=== PATIENT | male | born 1960 | race Caucasian/White ===

== ENCOUNTER 2017-03-04 09:42 | Inpatient (IN) | payer OTHER ==
[2017-03-04 12:24] VITALS: BMI 33.5
--- NOTE | 2017-03-04 15:44 | HP ---
CIWA Score - CIWA Score Nausea/Vomitin Muscle Tremors: 3 Anxiety: 3 Agitation: 3 Paroxysmal Sweats: 1-Minimal Palms Moist Orientation: 0-Oriented Tacttile Disturbances: 2-Mild Itch/Numbness/Burn Auditory Disturbances: 2-Mild Harshness/Frighten Visual Disturbances: 2-Mild Sensitivity Headache: 2-Mild CIWA-Ar Total Score: 21 Admission ROS BHS - HPI Chief Complaint: i need help to stop drinking alcohol and cocaine, Allergies/Adverse Reactions: Allergies Allergy/AdvReac Type Severity Reaction Status Date / Time No Known Allergies Allergy Verified 03/04/17 14:14 History of Present Illness: this 56 years old male with alcohol and cocaine dependence,seeking help for detox,last treatment [facility] 04/30/15 to 05/04/15 nicotine dependence multiple admissions in detox but relapse longest period of sobriety 5 years insomnia - Ebola screening Have you traveled outside of the country in the last 21 days: No Have you had contact with anyone from an Ebola affected area: No Have you been sick,other than usual withdrawal symptoms: No Do you have a fever: No - Review of Systems Constitutional: Loss of Appetite, Night Sweats, Changes in sleep, Weakness EENT: reports: Tearing, Nose Congestion Respiratory: reports: No Symptoms reported Cardiac: reports: No Symptoms Reported GI: reports: Diarrhea, Nausea, Vomiting, Abdominal cramping : reports: No Symptoms Reported Musculoskeletal: reports: Back Pain, Muscle Pain Integumentary: reports: Dryness Neuro: reports: Headache, Tremors Endocrine: reports: No Symptoms Reported Hematology: reports: No Symptoms Reported Psychiatric: reports: No Sypmtoms Reported (insomnia), Judgement Intact, Mood/ Affect Appropiate Patient History - Patient Medical History Hx Anemia: No Hx Asthma: No Hx Chronic Obstructive Pulmonary Disease (COPD): No Hx Cancer: No Hx Cardiac Disorders: No Hx Hypertension: No Hx Hypercholesterolemia: Yes (NO MED) Hx Pacemaker: No HX Cerebrovascular Accident: No Hx Seizures: No Hx Diabetes: No Hx Gastrointestinal Disorders: No Hx Liver Disease: No Hx Genitourinary Disorders: No Hx Sexually Transmitted Disorders: No Hx Renal Disease (ESRD): No Hx Thyroid Disease: No Hx Human Immunodeficiency Virus (HIV): No (NEGATIVE HX last 2015 negative) Hx Hepatitis C: No Hx Depression: No Hx Suicide Attempt: No Hx Bipolar Disorder: No Hx Schizophrenia: No Other Medical History: no suicidal,no homicidal,insomnia - Patient Surgical History Past Surgical History: No Hx Neurologic Surgery: No Hx Cataract Extraction: No Hx Cardiac Surgery: No Hx Lung Surgery: No Hx Breast Surgery: No Hx Breast Biopsy: No Hx Abdominal Surgery: No Hx Appendectomy: No Hx Cholecystectomy: No Hx Genitourinary Surgery: No Hx Section: No Hx Orthopedic Surgery: No Anesthesia Reaction: No - PPD History Previous Implant?: Yes Documented Results: Positive w/o proof Implanted On Prior [facility] Admission?: No PPD to be Administered?: No - Smoking Cessation Smoking history: Current every day smoker Have you smoked in the past 12 months: Yes Aproximately how many cigarettes per day: 20 Hx Chewing Tobacco Use: No Initiated information on smoking cessation: Yes 'Breaking Loose' booklet given: 03/04/17 - Substance & Tx. History Hx Alcohol Use: Yes Hx Substance Use: Yes Substance Use Type: Alcohol, Cocaine Hx Substance Use Treatment: Yes ([facility] 04/30/15 to 05/04/15) - Substances Abused Alcohol Route: Oral Frequency: Daily Amount used: 2 12PKS BEER/ 1 PINT VODKA Age of first use: 16 Date of Last Use: 03/03/17 Cocaine Route: Smoking Frequency: Daily Amount used: $100 AND UP Age of first use: 22 Date of Last Use: 03/03/17 Family Disease History - Family Disease History Family History: Denies Family Disease History: Other: Mother (HTN), Sister (HTN) Admission Physical Exam S - Vital Signs Vital Signs: Vital Signs - 24 hr 03/04/17 12:22 Temperature 96.6 F L Pulse Rate 72 Respiratory 20 Rate Blood Pressure 133/69 - Physical General Appearance: Yes: Moderate Distress, Tremorous, Irritable, Sweating, Anxious HEENTM: Yes: Hearing grossly Normal, Normal ENT Inspection, SURINDER, Pharynx Normal Respiratory: Yes: Lungs Clear, Normal Breath Sounds, No Respiratory Distress Neck: Yes: Within Normal Limits, Supple, Trachea in good position Breast: Yes: Within Normal Limits Cardiology: Yes: Within Normal Limits, Regular Rhythm, Regular Rate, S1, S2 Abdominal: Yes: Within Normal Limits, Normal Bowel Sounds, Non Tender, Soft Genitourinary: Yes: Within Normal Limits Back: Yes: Within Normal Limits Musculoskeletal: Yes: full range of Motion, Back pain, Muscle Pain Extremities: Yes: Normal Range of Motion, Tremors Neurological: Yes: athletic coach II-XII NML intact, Fully Oriented, Alert, Motor Strength 5/5 Integumentary: Yes: Dry Lymphatic: Yes: Within Normal Limits - Diagnostic (1) Nicotine dependence Current Visit: No Status: Acute (2) Alcohol dependence with uncomplicated withdrawal Current Visit: Yes Status: Acute (3) Cocaine dependence Current Visit: Yes Status: Acute (4) Hyperlipidemia Current Visit: No Status: Acute (5) Insomnia Current Visit: Yes Status: Acute Cleared for Admission [facility] - Detox or Rehab [facility] Level of Care: Medically Managed Detox Regimen/Protocol: Librium [facility] Breath Alcohol Content Breath Alcohol Content: 0 Urine Drug Screen - Results Drug Screen Negative: No Urine Drug Screen Results: CHRISTINA-Cocaine
[2017-03-04] MEDS ORDERED: P-EPHED 60MG/TRIPROLIDI 2.5MG TABLET PO PRN (16:04)
[2017-03-04] MEDS ORDERED: MAGNESIUM HYDROX 2400MG/30ML ORAL SUSPENSION 30 ML CUP PO PRN (16:04)
[2017-03-04] MEDS ORDERED: LOPERAMIDE HCL 2 MG CAPSULE PO PRN (16:04)
[2017-03-04] MEDS ORDERED: chlordiazePOXIDE HCL 25 MG CAPSULE PO ONE (16:04)
[2017-03-04] MEDS ORDERED: MAGNESIUM CITRATE 300 ML BOTTLE PO PRN (16:04)
[2017-03-04] MEDS ORDERED: MENTHOL/PHENOL 1 EACH UD MM PRN (16:04)
[2017-03-04] MEDS ORDERED: MAG HYDROX/AL HYDROX/SIMETH 30 ML UNIT-DOSE CUP PO PRN (16:04)
[2017-03-04] MEDS ORDERED: ACETAMINOPHEN 325 MG TABLET (FP) PO PRN (16:04)
[2017-03-04] MEDS ORDERED: chlordiazePOXIDE HCL 25 MG CAPSULE PO PRN (16:04)
[2017-03-04] MEDS ORDERED: diphenhydrAMINE HCL 50 MG CAPSULE PO PRN (16:04)
[2017-03-04] MEDS ORDERED: guaiFENesin/D-METHORPHAN HB 10 ML UNIT-DOSE CUPS PO PRN (16:04)
[2017-03-04] MEDS: chlordiazePOXIDE HCL 25 MG CAPSULE PO SCH ×2 (17:54→22:39)
[2017-03-04] MEDS: NICOTINE 21 MG/24 HOURS TOPICAL PATCH TD SCH (17:55)
[2017-03-04] MEDS: THIAMINE HCL 100 MG TABLET (FP) PO SCH (22:39)
[2017-03-04 23:17] LABS: URINE APPEARANCE CLEAR; URINE BILIRUBIN NEGATIVE (NEGATIVE); URINE BLOOD NEGATIVE (NEGATIVE); URINE COLOR YELLOW; URINE GLUCOSE (UA) NEGATIVE (NEGATIVE); URINE KETONE NEGATIVE (NEGATIVE); URINE LEUK ESTERASE NEGATIVE (NEGATIVE); URINE NITRITE NEGATIVE (NEGATIVE); URINE PROTEIN NEGATIVE (NEGATIVE); URINE UROBILINOGEN NEGATIVE mg/dL (0.2-1.0)
[2017-03-05] MEDS: chlordiazePOXIDE HCL 25 MG CAPSULE PO SCH ×4 (06:11→22:31)
--- NOTE | 2017-03-05 08:23 | CONSULT ---
[facility] Psychiatric Consult - Data Date of interview: 03/05/17 Admission source: [facility] Identifying data: This is 56 years old male with unclear past psychiatric history, intoxicated with: Heroin, Cocaine, Alcohol, Nicotine Substance Abuse History: - Smoking Cessation. Smoking history: Current every day smoker. Have you smoked in the past 12 months: Yes. Aproximately how many cigarettes per day: 20. Hx Chewing Tobacco Use: No. Initiated information on smoking cessation: Yes. 'Breaking Loose' booklet given: 03/04/17. - Substance & Tx. History. Hx Alcohol Use: Yes. Hx Substance Use: Yes. Substance Use Type : Alcohol, Cocaine. Hx Substance Use Treatment: Yes ([facility] 04/30/15 to 05/04/15) . - Substances Abused. Alcohol. Route: Oral. Frequency: Daily. Amount used: 2 12PKS BEER/ 1 PINT VODKA. Age of first use: 16. Date of Last Use: . Cocaine. Route: Smoking. Frequency: Daily. Amount used: $100 AND UP. Age of first use: 22. Date of Last Use: 03/03/17 Medical History: History of Cellulitis, GERD, LBP history Psychiatric History: Unclear, denies past psychiatric hospitalization history,m qas per computer there is a history of Bipolar Disorder. Reports no medicastions taking prior to admission Physical/Sexual Abuse/Trauma History: Denies Additional Comment: Observation. Detox Unit Care Protocol Mental Status Exam - Mental Status Exam Alert and Oriented to: Person Cognitive Function: Fair Patient Appearance: Unkempt Mood: Nervous, Anxious, Irritable Affect: Labile Patient Behavior: Guarded, Impulsive Speech Pattern: Delayed Voice Loudness: Mildly Loud Thought Process: Circumstantial Thought Disorder: Present Hallucinations: Denies Suicidal Ideation: Denies Homicidal Ideation: Denies Insight/Judgement: Fair Sleep: Difficulty falling asleep Appetite: Weight gain Muscle strength/Tone: Mild Hypotonicity Gait/Station: Shuffling Additional Comments: Observation. Detox Unit Care Protocol Psychiatric Findings - Problem List ([place] 1, 2,3) (1) Alcohol dependence with uncomplicated withdrawal Current Visit: Yes Status: Acute (2) Cocaine dependence Current Visit: Yes Status: Acute (3) Alcohol dependence Current Visit: No Status: Acute (4) Bipolar disorder Current Visit: No Status: Acute (5) Opioid dependence Current Visit: No Status: Acute (6) Drug-induced mood disorder Current Visit: Yes Status: Acute - Initial Treatment Plan Initial Treatment Plan: Observation. Detox Unit Care Protocol
[2017-03-05 10:03] LABS: MCH 29.8 pg (25.7-33.7); MCHC 32.5 g/dl (32.0-35.9); MEAN CELL VOLUME 91.9 fl (80-96); MEAN PLT VOLUME 8.9 fl (7.5-11.1); PLATELET COUNT 190 K/MM3 (134-434); RDW 12.9 % (11.9-15.9); WHITE BLOOD COUNT 6.1 K/mm3 (4.0-10.0)
[2017-03-05 10:11] LABS: ALBUMIN 3.1 g/dl (3.4-5.0); ANION GAP 7 (8-16); CALCIUM 8.2 mg/dL (8.5-10.1); CO2 26 mmol/L (21-32); GLUCOSE,RANDOM 92 mg/dL (74-106)
--- NOTE | 2017-03-05 10:13 | PN ---
S CIWA - CIWA Score Nausea/Vomitin Muscle Tremors: 3 Anxiety: 3 Agitation: 3 Paroxysmal Sweats: 1-Minimal Palms Moist Orientation: 0-Oriented Tacttile Disturbances: 1-Very Mild Itch/Numbness Auditory Disturbances: 1-Very Mild Visual Disturbances: 1-Very Mild Sensitivity Headache: 2-Mild CIWA-Ar Total Score: 18 S Progress Note (SOAP) Subjective: ALERT,IRRITABLE,ANXIOUS,INTERRUPTED SLEEP,TREMOR Objective: 03/05/17 10:11 Vital Signs Temperature 96.3 F L 03/05/17 06:32 Pulse Rate 51 L 03/05/17 06:32 Respiratory Rate 16 03/05/17 06:32 Blood Pressure 142/72 03/05/17 06:32 O2 Sat by Pulse Oximetry (%) EKG SINUS BRADYCARDIA 57/MIN,INVERTED T IN 3 N CHEST PAIN,NO SOB,NO DIZZINESS Laboratory Last Values WBC 6.1 K/mm3 (4.0-10.0) 03/05/17 06:30 RBC 4.87 M/mm3 (4.00-5.60) 03/05/17 06:30 Hgb 14.5 GM/dL (11.7-16.9) 03/05/17 06:30 Hct 44.8 % (35.4-49) 03/05/17 06:30 MCV 91.9 fl (80-96) 03/05/17 06:30 MCH 29.8 pg (25.7-33.7) 03/05/17 06:30 MCHC 32.5 g/dl (32.0-35.9) 03/05/17 06:30 RDW 12.9 % (11.9-15.9) 03/05/17 06:30 Plt Count 190 K/MM3 (134-434) 03/05/17 06:30 MPV 8.9 fl (7.5-11.1) D 03/05/17 06:30 Urine Color Yellow 03/04/17 22:00 Urine Appearance Clear 03/04/17 22:00 Urine pH 5.0 (5.0-8.0) 03/04/17 22:00 Ur Specific [place] >= 1.030 (1.005-1.025) H 03/04/17 22:00 Urine Protein Negative (NEGATIVE) 03/04/17 22:00 Urine Glucose (UA) Negative (NEGATIVE) 03/04/17 22:00 Urine Ketones Negative (NEGATIVE) 03/04/17 22:00 Urine Blood Negative (NEGATIVE) 03/04/17 22:00 Urine Nitrite Negative (NEGATIVE) 03/04/17 22:00 Urine Bilirubin Negative (NEGATIVE) 03/04/17 22:00 Urine Urobilinogen Negative mg/dL (0.2-1.0) 03/04/17 22:00 Ur Leukocyte Esterase Negative (NEGATIVE) 03/04/17 22:00 LABS PENDING Assessment: 03/05/17 10:12 WITHDRAWAL SYMPTOM Plan: CONTINUE DETOX
[2017-03-05 10:16] LABS: ALK PHOS 47 U/L (45-117); BILIRUBIN,TOTAL 0.2 mg/dL (0.2-1.0); CREATININE 0.7 mg/dL (0.7-1.3); SGOT/AST 12 U/L (15-37); SGPT/ALT 22 U/L (12-78); TOT PROT 5.8 g/dl (6.4-8.2)
[2017-03-05 10:38] LABS: HIV 1 & 2 AB NEGATIVE
[2017-03-05 10:39] LABS: HIV 1 AGp24 NEGATIVE
[2017-03-05] MEDS: PRENATAL VITAMINS W/ FOLIC ACID TABLET (FP) PO SCH (10:55)
[2017-03-05] MEDS: NICOTINE 21 MG/24 HOURS TOPICAL PATCH TD SCH (11:20)
--- NOTE | 2017-03-05 16:37 | EKG ---
Test Reason : Blood Pressure : / mmHG Vent. Rate : 055 BPM Atrial Rate : 055 BPM P-R Int : 138 ms QRS Dur : 090 ms QT Int : 464 ms P-R-T Axes : 034 -22 007 degrees QTc Int : 443 ms SINUS BRADYCARDIA NONSPECIFIC T WAVE ABNORMALITY ABNORMAL ECG NO PREVIOUS ECGS AVAILABLE Confirmed by PRESTON RHOADES, HILDA ([id number]) on 03/05/2017 4:37:27 PM Referred By: Confirmed By:HILDA JOHNSTON MD
[2017-03-05] MEDS: THIAMINE HCL 100 MG TABLET (FP) PO SCH (22:31)
[2017-03-06] MEDS: chlordiazePOXIDE HCL 25 MG CAPSULE PO SCH ×2 (05:45→10:37)
[2017-03-06] MEDS: NICOTINE POLACRILEX 2 MG GUM BC PRN ×2 (05:48→22:32)
--- NOTE | 2017-03-06 10:36 | PN ---
[facility] CIWA - CIWA Score Nausea/Vomitin Muscle Tremors: 3 Anxiety: 3 Agitation: 2 Paroxysmal Sweats: 1-Minimal Palms Moist Orientation: 0-Oriented Tacttile Disturbances: 1-Very Mild Itch/Numbness Auditory Disturbances: 1-Very Mild Visual Disturbances: 1-Very Mild Sensitivity Headache: 2-Mild CIWA-Ar Total Score: 17 S Progress Note (SOAP) Subjective: ALERT,IRRITABLE,ANXIOUS,INTERRUPTED SLEEP,TREMOR Objective: 03/06/17 10:34 Vital Signs Temperature 97.9 F 03/06/17 10:00 Pulse Rate 63 03/06/17 10:00 Respiratory Rate 18 03/06/17 10:00 Blood Pressure 145/81 03/06/17 10:00 O2 Sat by Pulse Oximetry (%) Laboratory Last Values WBC 6.1 K/mm3 (4.0-10.0) 03/05/17 06:30 RBC 4.87 M/mm3 (4.00-5.60) 03/05/17 06:30 Hgb 14.5 GM/dL (11.7-16.9) 03/05/17 06:30 Hct 44.8 % (35.4-49) 03/05/17 06:30 MCV 91.9 fl (80-96) 03/05/17 06:30 MCH 29.8 pg (25.7-33.7) 03/05/17 06:30 MCHC 32.5 g/dl (32.0-35.9) 03/05/17 06:30 RDW 12.9 % (11.9-15.9) 03/05/17 06:30 Plt Count 190 K/MM3 (134-434) 03/05/17 06:30 MPV 8.9 fl (7.5-11.1) D 03/05/17 06:30 Sodium 141 mmol/L (136-145) 03/05/17 06:30 Potassium 4.2 mmol/L (3.5-5.1) 03/05/17 06:30 Chloride 108 mmol/L (98-107) H 03/05/17 06:30 Carbon Dioxide 26 mmol/L (21-32) 03/05/17 06:30 Anion Gap 7 (8-16) L 03/05/17 06:30 BUN 12 mg/dL (7-18) 03/05/17 06:30 Creatinine 0.7 mg/dL (0.7-1.3) 03/05/17 06:30 Creat Clearance w eGFR > 60 (>60) 03/05/17 06:30 Random Glucose 92 mg/dL (74-106) 03/05/17 06:30 Calcium 8.2 mg/dL (8.5-10.1) L 03/05/17 06:30 Total Bilirubin 0.2 mg/dL (0.2-1.0) 03/05/17 06:30 AST 12 U/L (15-37) L D 03/05/17 06:30 ALT 22 U/L (12-78) D 03/05/17 06:30 Alkaline Phosphatase 47 U/L (45-117) D 03/05/17 06:30 Total Protein 5.8 g/dl (6.4-8.2) L 03/05/17 06:30 Albumin 3.1 g/dl (3.4-5.0) L 03/05/17 06:30 Urine Color Yellow 03/04/17 22:00 Urine Appearance Clear 03/04/17 22:00 Urine pH 5.0 (5.0-8.0) 03/04/17 22:00 Ur Specific [place] >= 1.030 (1.005-1.025) H 03/04/17 22:00 Urine Protein Negative (NEGATIVE) 03/04/17 22:00 Urine Glucose (UA) Negative (NEGATIVE) 03/04/17 22:00 Urine Ketones Negative (NEGATIVE) 03/04/17 22:00 Urine Blood Negative (NEGATIVE) 03/04/17 22:00 Urine Nitrite Negative (NEGATIVE) 03/04/17 22:00 Urine Bilirubin Negative (NEGATIVE) 03/04/17 22:00 Urine Urobilinogen Negative mg/dL (0.2-1.0) 03/04/17 22:00 Ur Leukocyte Esterase Negative (NEGATIVE) 03/04/17 22:00 RPR Titer Nonreactive (NONREACTIVE) 03/05/17 06:30 HIV 1&2 Antibody Screen Negative 03/05/17 06:30 HIV P24 Antigen Negative 03/05/17 06:30 Assessment: 03/06/17 10:35 WITHDRAWAL SYMPTOM Plan: CONTINUE DETOX
[2017-03-06] MEDS: NICOTINE 21 MG/24 HOURS TOPICAL PATCH TD SCH (10:37)
[2017-03-06] MEDS: PRENATAL VITAMINS W/ FOLIC ACID TABLET (FP) PO SCH (10:37)
[2017-03-06] MEDS: hydrOXYzine PAMOATE 50 MG CAPSULE (FP) PO PRN (10:38)
[2017-03-06] MEDS: chlordiazePOXIDE 5 MG CAPSULE PO SCH ×2 (17:36→22:31)
[2017-03-06] MEDS: THIAMINE HCL 100 MG TABLET (FP) PO SCH (22:31)
[2017-03-07] MEDS: chlordiazePOXIDE 5 MG CAPSULE PO SCH ×2 (05:20→10:42)
[2017-03-07] MEDS: IBUPROFEN 400 MG TABLET (FP) PO PRN ×2 (07:01→22:45)
[2017-03-07] MEDS: hydrOXYzine PAMOATE 50 MG CAPSULE (FP) PO PRN (10:42)
[2017-03-07] MEDS: PRENATAL VITAMINS W/ FOLIC ACID TABLET (FP) PO SCH (10:42)
[2017-03-07] MEDS: NICOTINE POLACRILEX 2 MG GUM BC PRN (10:43)
[2017-03-07] MEDS: NICOTINE 21 MG/24 HOURS TOPICAL PATCH TD SCH (10:43)
--- NOTE | 2017-03-07 11:26 | PN ---
S Progress Note (SOAP) Subjective: alert,irritable,anxious,interrupted sleep Objective: 03/07/17 11:24 Vital Signs Temperature 96.4 F L 03/07/17 09:45 Pulse Rate 59 L 03/07/17 09:45 Respiratory Rate 16 03/07/17 09:45 Blood Pressure 139/77 03/07/17 09:45 O2 Sat by Pulse Oximetry (%) Assessment: 03/07/17 11:24 withdrawal symptom Plan: continue detox,discharge in am
[2017-03-07] MEDS ORDERED: chlordiazePOXIDE 5 MG CAPSULE ONE (16:51)
[2017-03-07] MEDS: chlordiazePOXIDE HCL 10 MG CAPSULE PO SCH ×2 (18:05→22:46)
[2017-03-07] MEDS: THIAMINE HCL 100 MG TABLET (FP) PO SCH (22:46)
[2017-03-08] MEDS ORDERED: chlordiazePOXIDE 5 MG CAPSULE ONE (04:15)
[2017-03-08] MEDS: chlordiazePOXIDE HCL 10 MG CAPSULE PO SCH (05:47)
[2017-03-08] MEDS: NICOTINE POLACRILEX 2 MG GUM BC PRN (05:49)
[2017-03-08 06:45] VITALS: BP 130/94; PULSE 74; TEMP 97.4
--- NOTE | 2017-03-08 08:56 | DS ---
[facility] Detox Discharge Summary Admission Date: 03/04/17 Discharge Date: 03/08/17 - History Present History: Alcohol Dependence, Cocaine Dependence Additional Comments: FOLLOW UP WITH AFTER CARE PROGRAM ARRANGEMENT Pertinent Past History: NICOTINE DEPENDENCE HYPERLIPEDEMIA INSOMNIA - Physical Exam Results Vital Signs: Vital Signs Temperature 97.4 F L 03/08/17 06:45 Pulse Rate 74 03/08/17 06:45 Respiratory Rate 18 03/08/17 06:45 Blood Pressure 130/94 03/08/17 06:45 O2 Sat by Pulse Oximetry (%) Pertinent Admission Physical Exam Findings: WITHDRAWAL SYMPTOM - Treatment Hospital Course: Detox Protocol Followed, Detoxed Safely, Responded well, Discharged Condition Good Patient has Accepted a Rehab Referral to: DECLINED - Medication Discharge Medications: Ambulatory Orders NK [No Known Home Medication] 04/30/15 - Diagnosis (1) Nicotine dependence Current Visit: No Status: Acute (2) Alcohol dependence with uncomplicated withdrawal Current Visit: Yes Status: Acute (3) Cocaine dependence Current Visit: Yes Status: Acute (4) Hyperlipidemia Current Visit: No Status: Acute (5) Insomnia Current Visit: Yes Status: Acute - AMA Did Patient Leave Against Medical Advice: No
== END 2017-03-08 09:23 | disposition home or self-care (01) | DRG 897 ==
LOC: YASAS 09:42 → Y6N 15:20
PROVIDERS: ADMIT Internal Medicine Addiction Medicine; ATTEND Internal Medicine Addiction Medicine
PROC: HZ2ZZZZ Detoxification Services for Substance Abuse Treatment (ICD-10-PCS; principal; 2017-03-08)
DX: F10.230 Alcohol dependence with withdrawal, uncomplicated (principal); F14.20 Cocaine dependence, uncomplicated; F17.210 Nicotine dependence, cigarettes, uncomplicated; F31.9 Bipolar disorder, unspecified; F19.24 Other psychoactive substance dependence with psychoactive substance-induced mood disorder; G47.00 Insomnia, unspecified; E78.5 Hyperlipidemia, unspecified
CPT/HCPCS: 36415; 71010-TC; 80053; 81003; 85027; 86593; 87389; 93005; 93010